=== PATIENT | male | born 1975 | race Two or more races ===

== ENCOUNTER 2020-10-29 02:09 | Emergency (ER) | payer OTHER ==
[~2020-10-29] VITALS: Ht 170.2 cm; Wt 59.0 kg
--- NOTE | 2020-10-29 02:10 | NUR ---
Patient arrived via [facility] for GI Reflux and chest pain, no signs of acute distress noted
--- NOTE | 2020-10-29 02:12 | NUR ---
at bedside for assessment
[2020-10-29] MEDS ORDERED: ONDANSETRON 4 MG/2 ML VIAL IV ONE ×2 (02:15→04:15)
[2020-10-29] MEDS ORDERED: HYDROMORPHONE 1 MG/1 ML DISP.SYRIN IV ONE ×2 (02:15→04:15)
[2020-10-29] MEDS ORDERED: PANTOPRAZOLE SODIUM 40 MG VIAL IV ONE (02:15)
[2020-10-29] MEDS ORDERED: IV NORMAL SALINE 1000 ML BAG IV ONE (02:15)
[2020-10-29] MEDS ORDERED: ONDANSETRON 4 MG/2 ML VIAL ONE ×2 (02:22→04:26)
[2020-10-29] MEDS ORDERED: HYDROMORPHONE 1 MG/1 ML DISP.SYRIN ONE ×2 (02:22→04:26)
[2020-10-29] MEDS ORDERED: PANTOPRAZOLE SODIUM 40 MG VIAL ONE (02:23)
[2020-10-29 02:41] LABS: *BILIRUBIN,URIN NEGATIVE (NEGATIVE); *CLARITY,URINE CLEAR (CLEAR); *COLOR,URINE YELLOW (YELLOW); *KETONES,URINE NEGATIVE (NEGATIVE); *UROBILINOGEN,URINE 0.2 E.U./dl (NORMAL); LEUKOCYTE ESTERASE ,URINE NEGATIVE (NEGATIVE); NITRITE, URINE NEGATIVE (NEGATIVE); UGLUCOSE 2+ (NEGATIVE)
[2020-10-29 02:42] LABS: *BLOOD, URINE TRACE INTACT (NEGATIVE)
[2020-10-29] MEDS ORDERED: ZOLP10TA2 PO (03:05)
[2020-10-29] MEDS ORDERED: ONDA4TAB11 SL (03:05)
[2020-10-29] MEDS ORDERED: INSU100I26 SQ (03:05)
[2020-10-29] MEDS ORDERED: BLOOD PRESSURE MED PO (03:05)
[2020-10-29] MEDS ORDERED: METO-295 PO (03:05)
[2020-10-29] MEDS ORDERED: HYDR-4384 PO (03:05)
[2020-10-29] MEDS ORDERED: PANT40TA2 PO (03:05)
[2020-10-29] MEDS ORDERED: gabapentin PO (03:05)
[2020-10-29 03:08] LABS: BILIRUBIN,DIRECT 0.1 mg/dL (0.0-0.2); BILIRUBIN,TOTAL 0.2 mg/dL (0.2-1.0); CREATININE 1.1 mg/dL (0.6-1.3); POTASSIUM 4.1 mmol/L (3.5-5.1); TOTAL PROTEIN, SERUM 7.3 g/dL (6.4-8.2)
[2020-10-29] MEDS ORDERED: INSULIN REGULAR, HUMAN 300 UNIT/3 ML VIAL IV ONE (03:15)
[2020-10-29 03:18] LABS: BACTERIA,URINE NONE SEEN /HPF (NONE SEEN); SQUAMOUS EPITHELIAL CELL,UR FEW /HPF (NONE SEEN); WBC,URINE 0-3 /HPF (0-3)
[2020-10-29 03:19] LABS: BASOPHILS # (AUTO) 0.1 K/uL (0.0-8.0); BASOPHILS % (AUTO) 1.3 % (0.0-2.0); EOSINOPHILS # (AUTO) 0.1 K/uL (0.0-0.7); EOSINOPHILS % (AUTO) 1.6 % (0.0-7.0); HEMATOCRIT 37.7 % (36.7-47.1); HEMOGLOBIN 12.5 g/dL (12.5-16.3); LYMPHOCYTES # (AUTO) 1.2 K/uL (20.0-40.0); LYMPHOCYTES % (AUTO) 19.2 % (20.5-51.5); MEAN CORPUSCULAR HEMOGLOBIN 30.9 uug (23.8-33.4); MEAN CORPUSCULAR HGB CONC 33 g/dL (32.5-36.3); MEAN CORPUSCULAR VOLUME 93.2 fL (73.0-96.2); MONOCYTES # (AUTO) 0.2 K/uL (2.0-10.0); MONOCYTES % (AUTO) 2.6 % (0.0-11.0); NEUTROPHILS # (AUTO) 4.6 K/uL (1.8-8.9); NEUTROPHILS % (AUTO) 75.3 % (38.5-71.5); PLATELET COUNT (AUTO) 155 K/uL (152-348); RED BLOOD CELL COUNT(AUTO) 4.05 MIL/uL (4.06-5.63); WHITE BLOOD COUNT (AUTO) 6.1 K/uL (3.6-10.2)
[2020-10-29] MEDS ORDERED: INSULIN LISPRO 300 UNIT/3 ML VIAL SQ ONE (03:21)
[2020-10-29] MEDS ORDERED: INSULIN REGULAR, HUMAN 300 UNIT/3 ML VIAL ONE (03:40)
--- NOTE | 2020-10-29 04:46 | NUR ---
US a taxi arranged
--- NOTE | 2020-10-29 05:01 | NUR ---
Patient discharged to home in stable condition. Able to ambulate with steady gait, no signs of acute distress. Written and verbal after care instructions given. Patient verbalizes understanding of instructions. Stressed follow up or return to ER for worsening s/s.
[2020-10-29 05:13] VITALS: BP 143/73
== END 2020-10-29 05:00 | disposition home or self-care (01) ==
LOC: ER 02:17
DX: E11.65 Type 2 diabetes mellitus with hyperglycemia (principal); Z79.4 Long term (current) use of insulin; K21.9 Gastro-esophageal reflux disease without esophagitis; Z20.822 Contact with and (suspected) exposure to COVID-19
CPT/HCPCS: 36415; 71045; 74176; 80048; 80076; 81001; 82962; 83605; 83690; 84484; 85025; 87040; 87426; 93005; 96372; 96374; 96375; 96376; 99285; C9113; J1170 ×2; J1815; J2405 ×2; U0003; 70030-TC; A4663; J7030

== ENCOUNTER 2022-06-09 18:04 | Emergency (ER) | payer OTHER ==
[~2022-06-09] VITALS: Ht 162.6 cm; Wt 56.7 kg
[~2022-06-09 18:04] MED LIST: BLOOD PRESSURE MED PO; HYDR-4384 PO; INSU100I26 SQ; METO-295 PO; ONDA4TAB11 SL; PANT40TA2 PO; ZOLP10TA2 PO; gabapentin PO
[2022-06-09] MEDS ORDERED: GABA-532 PO (18:32)
[2022-06-09] MEDS ORDERED: ESCI10TA PO (18:32)
[2022-06-09] MEDS ORDERED: INSU100V39 SQ (18:32)
[2022-06-09] MEDS ORDERED: FAMO40TA71 PO (18:32)
--- NOTE | 2022-06-09 19:24 | NUR ---
Pt remained alert, oriented, speaking in full sentences. Report given to Dotty
--- NOTE | 2022-06-09 19:30 | NUR ---
OBTAINED REPORT FROM OUTGOING RN AND PATIENT AWAITING TX FOR ELEVATED BLOOD GLUCOSE, REPORTED THAT HIS RICKI AT HOME IS READING HIGH. POC 395. NO DISTRESS NOTED, A,A AND O X 4 AND VSS.
[2022-06-09 19:38] LABS: HEMATOCRIT 30.7 % (36.7-47.1); MEAN CORPUSCULAR HEMOGLOBIN 31.7 uug (23.8-33.4); MEAN CORPUSCULAR VOLUME 96.1 fL (73.0-96.2); PLATELET COUNT (AUTO) 260 K/uL (152-348)
[2022-06-09] MEDS ORDERED: IV NS 1000 ML 1,000 ML IV ONE ×2 (19:45)
[2022-06-09] MEDS ORDERED: INSULIN REGULAR, HUMAN 300 UNIT/3 ML VIAL IV ONE (19:45)
[2022-06-09 19:49] LABS: CREATININE 0.9 mg/dL (0.6-1.3); POTASSIUM 4.7 mmol/L (3.5-5.1)
[2022-06-09] MEDS ORDERED: INSULIN REGULAR, HUMAN 300 UNIT/3 ML VIAL ONE (20:20)
[2022-06-09] MEDS ORDERED: MORPHINE SULFATE 4 MG/1 ML DISP.SYRIN IV ONE (20:45)
[2022-06-09] MEDS ORDERED: MORPHINE SULFATE 4 MG/1 ML DISP.SYRIN ONE (20:59)
--- NOTE | 2022-06-09 22:30 | NUR ---
VOIDED 350 ML CLEAR YELLOW URINE POST 2L NS WIDE OPEN. URINE COLLECTED FOR LAB SPECIMEN.
[2022-06-09 22:52] LABS: *BILIRUBIN,URIN NEGATIVE (NEGATIVE); *CLARITY,URINE CLEAR (CLEAR); *COLOR,URINE YELLOW (YELLOW); *KETONES,URINE NEGATIVE (NEGATIVE); *UROBILINOGEN,URINE 0.2 E.U./dl (NORMAL); LEUKOCYTE ESTERASE ,URINE NEGATIVE (NEGATIVE); NITRITE, URINE NEGATIVE (NEGATIVE); PH,URINE 5.5 (5.0-8.0); UGLUCOSE 2+ (NEGATIVE)
[2022-06-09 23:07] LABS: *BLOOD, URINE TRACE (NEGATIVE)
--- NOTE | 2022-06-09 23:15 | NUR ---
RIGHT UA SL DISCONTINUED WITH CATH INTACT. PATIENT GIVEN SNACK HE REQUESTED.AWAITING RIDE HOME.
[2022-06-09 23:18] LABS: BACTERIA,URINE NONE SEEN /HPF (NONE SEEN); RBC,URINE 0-3 /HPF (0-3); SQUAMOUS EPITHELIAL CELL,UR NONE SEEN /HPF (NONE SEEN); WBC,URINE NONE SEEN /HPF (0-3)
--- NOTE | 2022-06-09 23:45 | NUR ---
CHARGE NURSE NOTIFIED THAT PATIENT DISCHARGE AND REQUESTING RIDE HOME.
== END 2022-06-09 23:15 | disposition home or self-care (01) ==
LOC: ER 18:07
DX: E10.43 Type 1 diabetes mellitus with diabetic autonomic (poly)neuropathy (principal); K31.84 Gastroparesis; E10.65 Type 1 diabetes mellitus with hyperglycemia; G89.29 Other chronic pain; E86.0 Dehydration; D64.9 Anemia, unspecified; Z79.4 Long term (current) use of insulin; E10.42 Type 1 diabetes mellitus with diabetic polyneuropathy; I10 Essential (primary) hypertension; Z88.6 Allergy status to analgesic agent; K21.9 Gastro-esophageal reflux disease without esophagitis; Z79.899 Other long term (current) drug therapy
CPT/HCPCS: 99284; 96374; 96361; 96375; 80048; 81001; 82962 ×2; 83690; 83735; 85025; 36415; 74018; J2270; J1815; J7040; A4663